=== PATIENT | male | born 2000 | race Two or more races ===

== ENCOUNTER 2019-08-16 12:54 | Emergency (ER) | payer OTHER ==
[~2019-08-16] VITALS: Ht 175.3 cm; Wt 97.8 kg
[2019-08-16] MEDS ORDERED: FAMOTIDINE INJ 20MG/2ML VIAL (S0028 PER 1) IVP ONE (13:15)
[2019-08-16] MEDS ORDERED: methylPREDNISolone INJ 125 MG/2 ML VIAL (J2930) IV ONE (13:15)
[2019-08-16] MEDS ORDERED: diphenhydrAMINE 50MG/ML VIAL (J1200) IV ONE (13:15)
[2019-08-16 13:30] LABS: BASO % 0.7 % (0.0-1.0); EOS # 0.2 10^3/uL (0.0-0.5); EOS % 3.7 % (0.0-3.0); HEMATOCRIT 42.7 % (42.0-52.0); HEMOGLOBIN 14.3 g/dl (13.5-17.5); LYMPH # 2.3 10^3/uL (1.5-5.0); MEAN CORPUSCULAR HEMOGLOBIN 30.7 pg (27.0-33.0); MEAN CORPUSCULAR HGB CONC 33.5 g/dl (32.0-36.5); MEAN CORPUSCULAR VOLUME 91.6 fl (80.0-96.0); MONO # 0.5 10^3/uL (0.0-0.8); MONO % 8.1 % (0.0-5.0); NEUTROPHILS # 2.9 10^3/uL (1.5-8.5); NEUTROPHILS % 48.3 % (36.0-66.0); PLATELET COUNT, AUTOMATED 243 10^3/uL (150-450); RED BLOOD COUNT 4.66 10^6/uL (4.30-6.10); WHITE BLOOD COUNT 5.9 10^3/uL (4.0-10.0)
[2019-08-16 13:48] LABS: ALBUMIN 4.5 GM/DL (3.2-5.2); ALT/SGPT 21 U/L (12-78); BILIRUBIN,DIRECT 0.2 MG/DL (0.0-0.2); BILIRUBIN,TOTAL 0.6 MG/DL (0.2-1.0); BLOOD UREA NITROGEN 17 MG/DL (7-18); C REACTIVE PROTEIN QUANTITATIV < 0.30 MG/DL (0.00-0.30); CALCIUM LEVEL 9.4 MG/DL (8.5-10.1); CARBON DIOXIDE LEVEL 26 MEQ/L (21-32); CHLORIDE LEVEL 107 MEQ/L (98-107); CREATININE FOR GFR 1.11 MG/DL (0.70-1.30); GLUCOSE, FASTING 101 MG/DL (70-100); POTASSIUM SERUM 4.2 MEQ/L (3.5-5.1); SODIUM LEVEL 140 MEQ/L (136-145); TOTAL PROTEIN 7.6 GM/DL (6.4-8.2)
[2019-08-16 14:32] LABS: ERYTHROCYTE SEDIMENTATION RATE 1 mm/hr (0-15)
[2019-08-16] MEDS ORDERED: PRED10TA2 PO (15:57)
[2019-08-16] MEDS ORDERED: PEPC1TAB5 PO (15:57)
[2019-08-16 16:34] VITALS: BP 117/73
== END 2019-08-16 16:30 | disposition home or self-care (01) ==
LOC: M ED 12:54
DX: T63.441A Toxic effect of venom of bees, accidental (unintentional), initial encounter (principal); L29.9 Pruritus, unspecified
CPT/HCPCS: 80048; 80076; 85025; 85652; 86140; 93041; 94760; 96374; 96375; 99285; J1200; J2930

== ENCOUNTER 2020-03-04 18:21 | Emergency (ER) | payer OTHER ==
[~2020-03-04] VITALS: Ht 175.3 cm; Wt 83.2 kg
[~2020-03-04 18:21] MED LIST: PEPC1TAB5 PO; PRED10TA2 PO
[2020-03-04] MEDS ORDERED: DERMABOND TOPICAL SKIN ADHESIVE TOP ONE (19:45)
[2020-03-04 20:05] VITALS: BP 134/83
== END 2020-03-04 20:25 | disposition home or self-care (01) ==
LOC: M ED 18:21
DX: S01.81XA Laceration without foreign body of other part of head, initial encounter (principal); W10.9XXA Fall (on) (from) unspecified stairs and steps, initial encounter; Y92.099 Unspecified place in other non-institutional residence as the place of occurrence of the external cause; Y93.9 Activity, unspecified; Y99.9 Unspecified external cause status

== ENCOUNTER 2020-06-30 16:02 | Emergency (ER) | payer OTHER ==
[~2020-06-30] VITALS: Ht 175.3 cm; Wt 85.9 kg
[2020-06-30 20:42] VITALS: BP 146/78
== END 2020-06-30 20:44 | disposition home or self-care (01) ==
LOC: M ED 16:02
DX: J02.9 Acute pharyngitis, unspecified (principal); R05 Cough; R51.9 Headache, unspecified; F17.200 Nicotine dependence, unspecified, uncomplicated

== ENCOUNTER 2020-10-05 02:43 | Inpatient (IN) | payer OTHER ==
[~2020-10-05] VITALS: Ht 175.3 cm; Wt 79.3 kg
[2020-10-05 06:17] LABS: HEMATOCRIT 39.8 % (42.0-52.0); HEMOGLOBIN 13.4 g/dl (13.5-17.5); MEAN CORPUSCULAR HEMOGLOBIN 30.9 pg (27.0-33.0); MEAN CORPUSCULAR HGB CONC 33.7 g/dl (32.0-36.5); MEAN CORPUSCULAR VOLUME 91.9 fl (80.0-96.0); PLATELET COUNT, AUTOMATED 235 10^3/uL (150-450); RED BLOOD COUNT 4.33 10^6/uL (4.30-6.10); WHITE BLOOD COUNT 7.3 10^3/uL (4.0-10.0)
[2020-10-05 06:55] LABS: ACETAMINOPHEN LEVEL < 2.0 UG/ML (10.0-30.0); ALBUMIN 3.7 GM/DL (3.2-5.2); ALT/SGPT 25 U/L (12-78); BILIRUBIN,DIRECT 0.1 MG/DL (0.0-0.2); BILIRUBIN,TOTAL 0.5 MG/DL (0.2-1.0); BLOOD UREA NITROGEN 11 MG/DL (7-18); CALCIUM LEVEL 8.7 MG/DL (8.5-10.1); CARBON DIOXIDE LEVEL 26 MEQ/L (21-32); CHLORIDE LEVEL 109 MEQ/L (98-107); CREATININE FOR GFR 0.99 MG/DL (0.70-1.30); ETHYL ALCOHOL (ETHANOL) < 0.003 % (0.000-0.010); GLOMERULAR FILTRATION RATE > 60.0 (>60); GLUCOSE, FASTING 94 MG/DL (70-100); POTASSIUM SERUM 4.3 MEQ/L (3.5-5.1); SALICYLATE LEVEL < 1.7 MG/DL (5.0-30.0); SODIUM LEVEL 141 MEQ/L (136-145); TOTAL PROTEIN 6.4 GM/DL (6.4-8.2)
[2020-10-05 09:02] LABS: AMPHETAMINES LEVEL URINE NEGATIVE (NEGATIVE); BARBITURATES URINE NEGATIVE (NEGATIVE); BENZODIAZEPINES URINE NEGATIVE (NEGATIVE); CANNABINOIDS URINE NEGATIVE (NEGATIVE); COCAINE METABOLITE URINE NEGATIVE (NEGATIVE); METHADONE URINE NEGATIVE (NEGATIVE); OPIATES URINE NEGATIVE (NEGATIVE); PHENCYCLIDINE URINE NEGATIVE (NEGATIVE)
[2020-10-05] MEDS ORDERED: HOME MED LIST COMPLETE! XX SCH (10:50)
[2020-10-05 15:47] LABS: RSV AMPLIFICATION NEGATIVE (NEGATIVE)
[2020-10-05] MEDS ORDERED: OLANZapine ORAL DISINTEGRATING TAB 5MG PO PRN (16:50)
[2020-10-05] MEDS ORDERED: NICOTINE 21MG/24HR 1 EA TRANSDERMAL TD PRN (16:50)
[2020-10-05] MEDS ORDERED: ACETAMINOPHEN TAB 650MG DOSE (2X325MG) PO PRN (16:50)
[2020-10-05] MEDS ORDERED: traZODone 50 MG TAB PO PRN (16:50)
[2020-10-05] MEDS ORDERED: MAALOX 30 ML SUSP *UDC PO PRN (16:50)
[2020-10-05] MEDS ORDERED: MOM 30ML SUSPENSION UDC PO PRN (16:50)
[2020-10-05 19:56] VITALS: BP 118/76
--- NOTE | 2020-10-05 21:45 | MHCRPDOC ---
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 I would have done something worse, but now maybe just fight him, when asked the name states he only knows this person goes by"Rabbit". Reports he has a shotgun at a friend's house on [address] [place] [address]. Safe act in progress by ED staff, who were made aware. Patient in vague on questioing, but does endorse needing to cool off, as he cou ld do "something". Continues to have HI, but denies SI, intent or plan. Agrees to admission to the [facility]. 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 SUBSTANCE ABUSE HISTORY: none endorsed LEGAL HISTORY: Denies, "but I got away with stuff" MENTAL STATUS EXAMINATION: Patient is a 20-year old male, who is in no acute distress, dressed in hospital clothes, appears stated age, poor eye contact Speech is slowed Language skills are normal Thought processes including: linear, logical Thought content: HI, intent, no clear plan, able to seek help and avoid acting on Abstract reasoning, and computation: poor Description of associations: normal Description of abnormal or psychotic thoughts: none Judgment: improving Insight:fair Orientation x4 Recent and remote memory: intact Attention span and concentration: fair Language: somali Fund of knowledge: average Mood: "well rested" Affect: dysthymic, passive aggressive, withdrawn, incongruent DIAGNOSIS: 1. Adjustment disorder 2. Interpersonal/relationship conflict 3. Homicidal ideation 2. Rule out cluster B traits PLAN: 1. Admit to inpatient psychiatry for monitoring, safety planing, possible treatment for impulsivity, aggression and mood CSSRS: Wish to be : no Non-specific active suicidal thoughts: no lifetime attempts/interrupted/aborted/preparatory acts: yes, hx of interrupted shooting attempt Taking into consideration safety status, state, modifiable and non-modifiable risk factors patient at elevated risk for suicide on discharge. Vital Signs Vital Signs Date Time Temp Pulse Resp B/P (MAP) Pulse Ox O2 Delivery O2 Flow Rate FiO2 10/05/20 19:56 97.4 71 18 118/76 (90) 99 Room Air Laboratory Data 24H Labs Laboratory Tests 2 10/05/20 06:02: Nucleated Red Blood Cells % (auto) 0.0, Anion Gap 6L, Glomerular Filtration Rate > 60.0, Calcium Level 8.7, Total Bilirubin 0.5, Direct Bilirubin 0.1, Aspartate Amino Transf (AST/SGOT) 12, Alanine Aminotransferase (ALT/SGPT) 25, Alkaline Phosphatase 66, Total Protein 6.4, Albumin 3.7, Albumin/Globulin Ratio 1.4, Thyroid Stimulating Hormone (TSH) 2.080, Salicylates Level < 1.7L, Acetaminophen Level < 2.0L, Ethyl Alcohol Level < 0.003 10/05/20 08:26: Urine Opiates Screen NEGATIVE, Urine Methadone Screen NEGATIVE, Urine Barbiturates Screen NEGATIVE, Urine Phencyclidine Screen NEGATIVE, Urine Amphetamines Screen NEGATIVE, Urine Benzodiazepines Screen NEGATIVE, Urine Cocaine Metabolite Screen NEGATIVE, Urine Cannabinoids Screen NEGATIVE 10/05/20 14:54: Coronavirus (COVID-19)(PCR) NEGATIVE, Influenza Type A (RT-PCR) NEGATIVE, Influenza Type B (RT-PCR) NEGATIVE, Respiratory Syncytial Virus (PCR) NEGATIVE Home Medications Current Medications Current Medications Medications (Trade) Dose Ordered Sig/Ashley Route PRN Reason Start Time Stop Time Status Last Admin Dose Admin Acetaminophen (Tylenol Tab) 650 mg Q6HP PRN PO HEADACHE or MILD DISCOMFORT 10/05/20 16:50 Al Hydrox/Mg Hydrox/Simethicone (Mylanta) 30 ml Q4HP PRN PO HEARTBURN/INDIGESTION 10/05/20 16:50 Home Med (Home Med List Complete!) ASDIRECTED XX 10/05/20 10:50 10/05/20 10:58 DC Magnesium Hydroxide (Milk Of Magnesia) 30 ml DAILYPRN PRN PO CONSTIPATION 10/05/20 16:50 Nicotine (Nicoderm Cq 21mg) 1 patch DAILY PRN TD NICOTINE WITHDRAWL 10/05/20 16:50 Olanzapine (ZyPREXA ZYDIS) 5 mg Q4HP PRN PO AGITATION 10/05/20 16:50 Trazodone HCl (Desyrel) 50 mg QHSP PRN PO INSOMNIA 10/05/20 16:50 No Active Prescriptions or Reported Meds Allergies Coded Allergies: No Known Allergies (Unverified , 08/16/19) MARIAMA SYED MD Oct 05, 2020 21:45
[2020-10-06 07:18] VITALS: BP 130/60
--- NOTE | 2020-10-06 07:54 | MHHPEPDOC ---
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 They got into an argument, "I got really mad and I wanted to harm my friend and I came here to cool off." This is his first psychiatric admission, he has a history of suicidal ideation and gesture to shoot himself, he aborted this. History of violence and has been suspended from school. 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 Pt from [place], stationed at for 2 years, no deployments. Pt was informed earlier tonight that his friend and his girlfriend slept together 2 days ago. Pt lives i [place], states "everyone was giving me shit about it there too, I had to get out." Pt reports HI with plan to shoot either his girlfriend or friend, "just needed a quiet room away from it all before I did something I would regret." Pt reports currently having no HI. Pt currently seen at [facility] 1x/week for the last 2-3 months, reports one IP admission as a child for behavioral issues (fighting, issues at school). Pt reports no meds and no AH/VH. Pt reports good sleep and normal appetite. Pt reports hx of PTSD, SI with plan to shoot himself in the head at age 12, would not disclose any reasoning. Pt denies any SI currently or since age 12. Pt reports liking his job, no issues at work, no other life stressors, good support systems. Pt CFS. CSSRS: Wish to be : no Non-specific active suicidal thoughts: no lifetime attempts/interrupted/aborted/preparatory acts: yes, hx of interrupted shooting attempt Taking into consideration safety status, state, modifiable and non-modifiable risk factors patient at elevated risk for suicide on discharge. Psychiatric Review of Systems Depression (2 or more weeks): denies Alla (4 or more days of): denies Psychosis: denies PTSD: history of trauma, intrusive memories, avoidance of triggers, mood fluctuations Anxiety: denies Anxiety/ 6 months or more of: personality cluster A,BC Past Psychiatric History Previous Psychiatric Diagnosis: PTSD, ADHD Previous Psychiatric Admissions: This is first Suicide Attempts: at 12 or 13 attempted to shoot himself, had the gun and it was loaded but didn't follow through. He states that it wasn't worth it Psychiatric Follow-up: [facility] Psychiatric medications: None. Past Medical History Medical Problems No chronic or acute issues Head Injury: Yes (Concussions x 3 age 14,, 16 and fell down the stairs last ye ar was seen in the ED at [facility]) Seizures: No Hospitalizations: No Surgeries: No Family Medical/Psychiatric HX Medical Problems N0 contributory medical problems Psychiatric Disorders: No Addiction: No Suicide Attemps/Completions: No Addiction History nicotine (smokes 1/2 ppd), alcohol (drinks occasional) Social History Childhood: Born in [place], [place]. Had both parents growing, has little sister. Did well in school. Describes his childhood "hectic" Abuse/Trauma: PTSD childhood trauma. Current Living Situation: in the [facility] Education: High School Diploma Employment: Active Duty [employer] Social Support: Friend, Rupa Legal: None Marital: Single, Never , No children Mental Status Examination General Appearance: disheveled, appears stated age, hospital scubs/clothing Build: average Demeanor: average Eye Contact: average Activity: average Behavior: cooperative Speech: clear, reg/rate,rhythm,volume Mood: euthymic Affect: appropriate Thought Process: logical/linear Thought Content (Delusions): none reported, denies SI, HI, AVH Thought Content (Other): none reported Thought Content (Aggressive): none reported Perception (Hallucinations): none reported Perception (Other): none reported Cognition (Impairment of): none reported Cognition(Intelligence Est.): average Oriented: Awake, Alert Insight: fair Judgment: Fair Psychosis: Denies Diagnoses Adjustment Disorder Nicotine Use Disorder Interpersonal/relationship conflict Homicidal ideation Rule out cluster B traits A-FIB/CHADSVASC A-FIB History Current/History of A-Fib/PAF?: No Current PO Anticoag Therapy: No Assessment Patient is a 20 -year-old Single, 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 They got into an argument, "I got really mad and I wanted to harm my friend and I came here to cool off." This is his first psychiatric admission, he has a history of suicidal ideation and gesture to shoot himself, he aborted this. History of violence and has been suspended from school. He is reporting no suicidal or homicidal ideation,planning or intent at this time. See MSE. Patient declines any medications but feels that he needed to be admitted for his intense feelings of wanting to harm his friend. Patient is willing to take medications for anxiety and agitation, will be afforded individual and group therapy, milieu therapy and will participate in unit activities. He will be discharged when he is stable. Probably discharge on Sunday Initial Treatment Plan 1. Patient was admitted on a [9.39] status. 2. Complete history was obtained. 3. With patients permission, family will be contacted and database will be expanded. 4. Patients medication regimen will be reviewed and changed accordingly. 5. Patient will be provided with protected environment. 6. Patient will be treated with individual, group, and milieu therapies. 7. Patient will receive supportive psych-education. 8. Discharge planning will commence immediately. 9. Outpatient follow-up treatment will be strongly recommended. 10. The initial treatment plan will focus initially on: * Depression. * interpersonal conflict * Risk for violence/homicidal ideations. ESTIMATED LENGTH OF STAY: 2-4 DAYS. TIME SPENT COUNSELING AND COORDINATING INITIAL CARE: 45 minutes. Tobacco Cessation Screen Tobacco Cessation Tx Ordered?: Yes N/A-No Antipsychotics Vital Signs Vital Signs Date Time Temp Pulse Resp B/P (MAP) Pulse Ox O2 Delivery O2 Flow Rate FiO2 10/06/20 07:18 97.3 70 14 130/60 (83) 98 Room Air Laboratory Data 24H Labs Laboratory Tests 2 10/05/20 08:26: Urine Opiates Screen NEGATIVE, Urine Methadone Screen NEGATIVE, Urine Barbiturates Screen NEGATIVE, Urine Phencyclidine Screen NEGATIVE, Urine Amphetamines Screen NEGATIVE, Urine Benzodiazepines Screen NEGATIVE, Urine Cocaine Metabolite Screen NEGATIVE, Urine Cannabinoids Screen NEGATIVE 10/05/20 14:54: Coronavirus (COVID-19)(PCR) NEGATIVE, Influenza Type A (RT-PCR) NEGATIVE, Influenza Type B (RT-PCR) NEGATIVE, Respiratory Syncytial Virus (PCR) NEGATIVE Medications No Active Prescriptions or Reported Meds Allergies Coded Allergies: No Known Allergies (Unverified , 08/16/19) NIRMALA FERNANDO NP Oct 06, 2020 07:50
[2020-10-06 18:11] VITALS: BP 139/67
--- NOTE | 2020-10-06 19:37 | HPEPDOC ---
[facility] Medical History & Physical Date of Admission Oct 05, 2020 Date of Service: Oct 06, 2020 History and Physical CHIEF COMPLAINT: Suicidal and homicidal ideation HISTORY OF PRESENT ILLNESS: Mr. Romero is a 20-year-old male who is in the inpatient mental health unit for suicidal and homicidal ideation. Patient denies any fever or chills, chest pain, dyspnea, abdominal pain, diarrhea, or dysuria. He is a current smoker, but declined nicotine patch. Patient has no medical concerns at this time PAST MEDICAL HISTORY: Denies any known medical history PAST SURGICAL HISTORY: Denies any surgeries SOCIAL HISTORY: Tobacco use: Current smoker. Smoked half a pack per day since he was 14 years old ETOH: Drinks alcohol monthly Illicit drug use: Denies recreational drug use FAMILY HISTORY: Father: Denies any known past medical history in father Mother: Denies any known past medical history mother ALLERGIES: Please see below. REVIEW OF SYSTEMS: CONSTITUTIONAL: Denies any fever or chills. ENT: Denies sore throat. RESPIRATORY: Denies shortness of breath. Denies cough. CARDIOVASCULAR: Denies chest pain. GASTROINTESTINAL: Denies abdominal pain. Denies diarrhea. Denies constipation GENITOURINARY: Denies dysuria. CUTANEOUS: Denies rashes. MUSCULOSKELETAL: Denies muscle weakness. NEUROLOGICAL: Denies neuropathy. Denies paresthesias. PSYCHOLOGICAL: Denies anxiety. Denies depression. HOME MEDICATIONS: Please see below. PHYSICAL EXAMINATION: VITAL SIGNS: Temperature 97.3, pulse 61, respiratory rate 16, blood pressure 139/67, pulse oximetry 98% on room air. GENERAL: Comfortable, in no apparent distress. HEENT: Head normocephalic/atraumatic, EOMI, sclera clear. NECK: Supple. RESPIRATORY: Lungs clear to auscultation bilaterally, no rales, wheeze or rhonchi. CARDIOVASCULAR: Regular rate and rhythm. ABDOMEN: Soft, nontender, no guarding or rebound tenderness. Normal bowel sounds. MUSCLE SKELETAL: Muscle strength 5/5 in all extremities. NEUROLOGICAL: CN 312 grossly intact, no focal deficits noted. PSYCHOLOGICAL: Normal mood and affect LABORATORY DATA: See below. IMAGING: None MICROBIOLOGY: Please see below. ASSESSMENT and PLAN: 1. Suicidal and homicidal ideation Being managed in the inpatient mental health unit 2. Tobacco use disorder. Patient declines nicotine patch Thank you for consulting us. We will sign off at this time. If there is is any further questions or concerns, please do not hesitate to reconsult us. Vital Signs Vital Signs Date Time Temp Pulse Resp B/P (MAP) Pulse Ox O2 Delivery O2 Flow Rate FiO2 10/06/20 18:11 97.3 61 16 139/67 (91) 10/06/20 07:18 98 Room Air Home Medications No Active Prescriptions or Reported Meds Allergies Coded Allergies: No Known Allergies (Unverified , 08/16/19) A-FIB/CHADSVASC A-FIB History Current/History of A-Fib/PAF?: No JUDE CAT DO Oct 06, 2020 19:37
[2020-10-07 06:51] VITALS: BP 105/57
--- NOTE | 2020-10-07 16:16 | MHIPN ---
[facility] PROGRESS NOTE DATE: 10/07/2020 SUBJECTIVE: "I'm feeling fine. 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 Currently denies both suicidal and homicidal thoughts. He reportedly was told that his girlfriend was having an affair with his friend, but he thinks now that problem is resolved; however, patient continues to be isolative. Does not attend groups. MENTAL STATUS EXAMINATION: Casually dressed, cooperative. Made intermittent eye contact. Speech rate, rhythm, volume are good. Denied auditory or visual hallucinations. Denied suicidal or homicidal ideas. Mood is depressed. His insight and judgment are fair. He is oriented to time, place, and person. VITAL SIGNS: Temperature 97.6, pulse 58, respiratory rate 16, blood pressure 105/57, pulse oximetry 98. DIAGNOSES: 1. Depressive disorder, not otherwise specified. 2. Rule out major depressive disorder. PLAN: Monitor the patient for 1 or 2 days. If he is stable, he could be discharged. LENGTH OF EVALUATION: 25 minutes.
[2020-10-07 17:19] VITALS: BP 128/72
[2020-10-08 05:40] VITALS: BP 152/72
--- NOTE | 2020-10-08 17:27 | MHIPN ---
[facility] PROGRESS NOTE DATE: 10/08/2020 SUBJECTIVE: "I'm feeling fine, and I don't want to be on any medications. 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 Currently he denies those thoughts. He reported that he was upset that his girlfriend had an affair with his friend, but the problems have been resolved. He is attending groups. MENTAL STATUS EXAMINATION: Casually dressed, cooperative. Made good eye contact. Speech rate, rhythm, volume are good. Denied auditory or visual hallucinations. Denied any suicidal or homicidal ideas. Mood is depressed. His insight and judgment are fair. He is oriented to time, place, and person. VITAL SIGNS: Temperature 97.1, pulse 96, respiratory rate 18, blood pressure 152/72, pulse oximetry 98. LABORATORY DATA: CBC within normal limits. CMP within normal limits. Toxicology was negative. DIAGNOSES: 1. Depressive disorder, not otherwise specified. 2. Rule out major depressive disorder. PLAN: Continue monitoring the patient for one or two days and then can be discharged on Sunday if he is stable. ESTIMATED LENGTH OF STAY: Two days. TIME SPENT: 25 minutes.
[2020-10-08 18:23] VITALS: BP 138/82
[2020-10-09 06:51] VITALS: BP 114/66
--- NOTE | 2020-10-09 15:44 | MHIPNPDOC ---
[facility] Progress Note Progress Note DATE OF SERVICE: 10/09/20 SUBJECTIVE: "I'm feeling fine, and I don't want to be on any medications. I'm afraid of the side effects." Patient continues to have the same response, he is attending groups And does not have any suicidal thoughts. 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 Currently he denies those thoughts. He reported that he was upset that his girlfriend had an affair with his friend, but the problems have been resolved. He is attending groups. MENTAL STATUS EXAMINATION: Casually dressed, cooperative. Made good eye contact. Speech rate, rhythm, volume are good. Denied auditory or visual hallucinations. Denied any suicidal or homicidal ideas. Mood is depressed. His insight and judgment are fair. He is oriented to time, place, and person. LABORATORY DATA: CBC within normal limits. CMP within normal limits. Toxicology was negative. DIAGNOSES: 1. Depressive disorder, not otherwise specified. 2. Rule out major depressive disorder. PLAN: Continue monitoring the patient for one or two days and then can be discharged on Sunday if he is stable. ESTIMATED LENGTH OF STAY: Two days. TIME SPENT: 25 minutes. Vital Signs Vital Signs Date Time Temp Pulse Resp B/P (MAP) Pulse Ox O2 Delivery O2 Flow Rate FiO2 10/09/20 10:34 Room Air 10/09/20 06:51 97.4 75 18 114/66 (82) 100 Current Medications Current Medications Medications (Trade) Dose Ordered Sig/Ashley Route PRN Reason Start Time Stop Time Status Last Admin Dose Admin Acetaminophen (Tylenol Tab) 650 mg Q6HP PRN PO HEADACHE or MILD DISCOMFORT 10/05/20 16:50 Al Hydrox/Mg Hydrox/Simethicone (Mylanta) 30 ml Q4HP PRN PO HEARTBURN/INDIGESTION 10/05/20 16:50 Home Med (Home Med List Complete!) ASDIRECTED XX 10/05/20 10:50 10/05/20 10:58 DC Magnesium Hydroxide (Milk Of Magnesia) 30 ml DAILYPRN PRN PO CONSTIPATION 10/05/20 16:50 Nicotine (Nicoderm Cq 21mg) 1 patch DAILY PRN TD NICOTINE WITHDRAWL 10/05/20 16:50 Olanzapine (ZyPREXA ZYDIS) 5 mg Q4HP PRN PO AGITATION 10/05/20 16:50 Trazodone HCl (Desyrel) 50 mg QHSP PRN PO INSOMNIA 10/05/20 16:50 Allergies Coded Allergies: No Known Allergies (Unverified , 08/16/19) CULLEN BARNHART MD Oct 09, 2020 15:44
[2020-10-09 16:26] VITALS: BP 114/58
[2020-10-10 06:30] VITALS: BP 137/68
[2020-10-10 19:10] VITALS: BP 142/69
[2020-10-11 06:25] VITALS: BP 128/80
--- NOTE | 2020-10-11 11:26 | MHDS ---
[facility] DISCHARGE SUMMARY DATE OF ADMISSION: 10/05/2020 DATE OF DISCHARGE: 10/11/2020 DIAGNOSES: 1. Depressive disorder, not otherwise specified. 2. Rule out major depressive disorder. 3. Rule out adjustment disorder with depressed mood. 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 For history of present illness (HPI), past psychiatric history, personal history, medical history, please refer to the initial evaluation. COURSE IN THE HOSPITAL: Patient was initially depressed and was angry; however, did not contemplate homicidal or suicidal thoughts. He was placed on suicide precautions and 15 minute checks. He was placed on individual, group and milieu therapy. Patient was encouraged to participate in the groups. Patient started participating. His depression slowly resolved. Patient did not take any medications. He reported this was his first psychiatric hospitalization. He, at the time of discharge, did not have any suicidal or homicidal thoughts. Patient reports that he is not angry with his friend for what he did, nor is he angry with his girlfriend. MENTAL STATUS EXAMINATION: Casually dressed in hospital attire, cooperative. Made good eye contact. Speech: Rate, rhythm and volume are good. Denied any auditory or visual hallucinations. Denied any suicidal or homicidal ideas. Mood is euthymic with appropriate affect. Insight and judgment are good. He is oriented to time, place and person. Attention and concentration are fine. VITAL SIGNS: Temperature 97.8, pulse 78, respirations 16, pulse oximetry 100%. LABORATORY DATA: Complete blood count (CBC) within normal limits. Complete metabolic panel (CMP) within normal limits. Toxicology was negative. PLAN: Discharge him to [place]. He will be followed up at [facility].
== END 2020-10-11 11:10 | disposition home or self-care (01) | DRG 881 ==
LOC: M ED 02:43 → M ED INP 16:50 → M PSY 20:14
PROVIDERS: ADMIT Psychiatry & Neurology Psychiatry; ATTEND Psychiatry & Neurology Psychiatry
DX: F32.9 Major depressive disorder, single episode, unspecified (principal); F43.21 Adjustment disorder with depressed mood; R45.850 Homicidal ideations; F90.9 Attention-deficit hyperactivity disorder, unspecified type; F43.10 Post-traumatic stress disorder, unspecified; Z20.822 Contact with and (suspected) exposure to COVID-19; Z63.0 Problems in relationship with spouse or partner; F17.210 Nicotine dependence, cigarettes, uncomplicated